=== PATIENT | male | born 1995 | race Two or more races ===

== ENCOUNTER 2024-02-29 01:58 | Emergency (ER) | payer MEDICAID ==
[~2024-02-29] VITALS: Ht 167.6 cm; Wt 129.7 kg
[2024-02-29] MEDS ORDERED: dexAMETHasone 1 MG/ML UDC ONE (02:40)
[2024-02-29] MEDS ORDERED: diphenhydrAMINE HCL 50 MG CAPSULE ONE (02:40)
[2024-02-29] MEDS ORDERED: FAMOTIDINE (20 MG) 20 MG TABLET ONE (02:41)
[2024-02-29] MEDS: FAMOTIDINE (20 MG) 20 MG TABLET PO ONE (02:46)
[2024-02-29] MEDS: dexAMETHasone 1 MG/ML UDC PO ONE (02:46)
[2024-02-29] MEDS: diphenhydrAMINE HCL 25 MG CAPSULE PO ONE (02:46)
[2024-02-29 04:29] VITALS: BP 168/70; TEMP 98.5; O2SAT 98
== END 2024-02-29 04:30 | disposition left against medical advice (07) ==
LOC: ER 02:18
DX: R21 Rash and other nonspecific skin eruption (principal); R06.02 Shortness of breath; R56.9 Unspecified convulsions
CPT/HCPCS: 99284; Q0163; J8540